=== PATIENT | male | born 1970 | race Caucasian/White ===

== ENCOUNTER 2021-01-17 22:02 | Emergency (ER) | payer OTHER ==
[2021-01-18 00:05] LABS: Absolute Lymphocytes (CBC) 2.9 K/uL (0.7-4.9); Basophils % 0.8 % (0-1.3); Hematocrit 39.1 % (39.6-49.0); Lymphocytes % 26.5 % (15.3-44.8); MPV 7.7 fL (7.6-11.3); RBC Red Blood Cell Count 4.33 M/uL (4.33-5.43)
[2021-01-18 00:18] LABS: Potassium 3.8 mmol/L (3.5-5.1)
[2021-01-18] MEDS ORDERED: KETOROLAC 30 MG/ML INJ ONE (01:07)
--- NOTE | 2021-01-18 02:42 | EDPHYS ---
Physician Documentation [facility] Name: Terrence Swift Age: 50 yrs Sex: Male : 1970 Arrival Date: 01/17/2021 Time: 22:04 Bed 8 Private MD: ED Physician Carloz Garner HPI: 01/18 01:14 This 50 yrs old Male presents to ER via Ambulatory with complaints of Elbow mh7 Swelling-redness/fever. 01:14 The patient or guardian complains of pain, that is acute. The complaints affect the mh7 right elbow. Context: The problem was sustained at an unknown location, resulted from repetitive motion moving furniture. Onset: The symptoms/episode began/occurred 4 day(s) ago. Treatment prior to arrival includes: no previous treatment. Modifying factors: The symptoms are alleviated by OTC meds, the symptoms are aggravated by lifting weight, bending arm. Associated signs and symptoms: Pertinent positives: decreased range of motion, pain, Pertinent negatives: deformity, erythema, fever, nausea, numbness, swelling, tingling, vomiting, warmth, weakness. Severity of symptoms: At their worst the symptoms were moderate, 3 day(s) ago, in the emergency department the symptoms have improved, moderately. Historical: - Allergies: 01/17 22:27 No Known Allergies; em - PMHx: 22:27 Hyperlipidemia; Hypertension; em - PSHx: 22:27 None; em - Immunization history:: Adult Immunizations up to date. - Social history:: Smoking status: Patient denies any tobacco usage or history of. ROS: 01/18 01:14 Constitutional: Negative for fever, chills, and weight loss, Eyes: Negative for injury, mh7 pain, redness, and discharge, ENT: Negative for injury, pain, and discharge, Neck: Negative for injury, pain, and swelling, Cardiovascular: Negative for chest pain, palpitations, and edema, Respiratory: Negative for shortness of breath, cough, wheezing, and pleuritic chest pain, Abdomen/GI: Negative for abdominal pain, nausea, vomiting, diarrhea, and constipation, Back: Negative for injury and pain, : Negative for injury, bleeding, discharge, and swelling, Skin: Negative for injury, rash, and discoloration, Neuro: Negative for headache, weakness, numbness, tingling, and seizure, Psych: Negative for depression, anxiety, suicide ideation, homicidal ideation, and hallucinations, Allergy/Immunology: Negative for hives, rash, and allergies, Endocrine: Negative for neck swelling, polydipsia, polyuria, polyphagia, and marked weight changes, Hematologic/Lymphatic: Negative for swollen nodes, abnormal bleeding, and unusual bruising. Exam: 01:14 Constitutional: This is a well developed, well nourished patient who is awake, alert, mh7 and in no acute distress. Head/Face: Normocephalic, atraumatic. Eyes: Pupils equal round and reactive to light, extra-ocular motions intact. Lids and lashes normal. Conjunctiva and sclera are non-icteric and not injected. Cornea within normal limits. Periorbital areas with no swelling, redness, or edema. Neck: Trachea midline, no thyromegaly or masses palpated, and no cervical lymphadenopathy. Supple, full range of motion without nuchal rigidity, or vertebral point tenderness. No Meningismus. Chest/axilla: Normal chest wall appearance and motion. Nontender with no deformity. No lesions are appreciated. Cardiovascular: Regular rate and rhythm with a normal S1 and S2. No gallops, murmurs, or rubs. Normal PMI, no JVD. No pulse deficits. Respiratory: Lungs have equal breath sounds bilaterally, clear to auscultation and percussion. No rales, rhonchi or wheezes noted. No increased work of breathing, no retractions or nasal flaring. Abdomen/GI: Soft, non-tender, with normal bowel sounds. No distension or tympany. No guarding or rebound. No evidence of tenderness throughout. Back: No spinal tenderness. No costovertebral tenderness. Full range of motion. Skin: Warm, dry with normal turgor. Normal color with no rashes, no lesions, and no evidence of cellulitis. 01:14 Neuro: Awake and alert, GCS 15, oriented to person, place, time, and situation. Cranial nerves II-XII grossly intact. Motor strength 5/5 in all extremities. Sensory grossly intact. Cerebellar exam normal. Normal gait. Psych: Awake, alert, with orientation to person, place and time. Behavior, mood, and affect are within normal limits. 01:14 Musculoskeletal/extremity: Extremities: noted in the right elbow: decreased ROM, pain, tenderness, ROM: limited active range of motion due to pain, in the right elbow, limited passive range of motion due to pain, in the right elbow, Circulation is intact in all extremities. Sensation intact. Compartment Syndrome exam of affected extremity: is normal. no numbness, no tingling, no sensation deficit, no palor, no weak pulses, Joints: the right elbow displays painful range of motion, tenderness, Weight bearing: able to fully bear weight, without difficulty, Tendon exam: specific tendon testing normal through active and passive range of motion Vital Signs: 01/17 22:23 BP 150 / 104; Pulse 83; Resp 18; Temp 98.5; Pulse Ox 100% on R/A; Weight 97.52 kg; em Height 5 ft. 9 in. (175.26 cm); Pain 03/18; 01/18 00:17 BP 141 / 90; Pulse 74; Resp 18; Pulse Ox 100% on R/A; ea 01:00 BP 131 / 84; Pulse 70; Resp 17; Pulse Ox 98% ; rr5 02:00 BP 139 / 84; Pulse 79; Resp 16; Pulse Ox 98% ; rr5 02:50 BP 123 / 82; Pulse 60; Resp 18; Pulse Ox 98% ; ea 01/17 22:23 Body Mass Index 31.75 (97.52 kg, 175.26 cm) em MDM: 02:38 Differential diagnosis: contusion, abrasion, tendonitis, Bursitis. Data reviewed: vital [facility] signs, nurses notes, lab test result(s), CBC, electrolytes, radiologic studies, plain films. Data interpreted: Pulse oximetry: on room air is 98 %. Interpretation: normal. Counseling: I had a detailed discussion with the patient and/or guardian regarding: the historical points, exam findings, and any diagnostic results supporting the discharge/admit diagnosis, the presence of at least one elevated blood pressure reading (>120/80) during this emergency department visit, lab results, radiology results, the need for outpatient follow up, a orthopedic surgeon, to return to the emergency department if symptoms worsen or persist or if there are any questions or concerns that arise at home. Response to treatment: the patient's symptoms have markedly improved after treatment. 02:42 Patient medically screened. [facility] 01/17 23:48 Order name: CBC with Diff; Complete Time: 00:19 ea 01/17 23:48 Order name: BMP; Complete Time: 00:19 ea 01/17 22:53 Order name: XRAY Elbow RIGHT 3 view bb 01/17 23:48 Order name: Procalcitonin; Complete Time: 01:37 ea 01/18 02:25 Order name: Kevin Wrap; Complete Time: 02:57 mh7 01/18 02:38 Order name: Sling; Complete Time: 02:47 7 Administered Medications: 00:54 Drug: TORadol (ketorolac) 30 mg Route: IVP; Site: left antecubital; ea 02:57 Follow up: Response: No adverse reaction; Pain is decreased ea Disposition: 01/18/21 02:42 Discharged to Home. Impression: Elbow Pain, Right. - Condition is Stable. - Discharge Instructions: RICE for Routine Care of Injuries, [id number], Elbow Contusion, [id number]. - Prescriptions for ketorolac 10 mg Oral tablet - take 1 tablet by ORAL route every 8 hours As needed not to exceed 40 mg in 24hrs; 12 tablet. - Medication Reconciliation Form, Thank You Letter, Antibiotic Education, Prescription Opioid Use form. - Follow up: Private Physician; When: 1 - 2 days; Reason: Worsening of condition, Recheck today's complaints, Continuance of care, Re-evaluation by your physician. Follow up: Winston Sunshine MD; When: 2 - 3 days; Reason: Worsening of condition, Recheck today's complaints. - Problem is new. - Symptoms have improved. Signatures: Dispatcher [employer] EDGovind Yancey RN RN em Antunez, Elena, RN RN ea Holmes, Maurice, MD MD [facility] Corrections: (The following items were deleted from the chart) 02:59 02:42 01/18/2021 02:42 Discharged to Home. Impression: Elbow Pain, Right. Condition is ea Stable. Forms are Medication Reconciliation Form, Thank You Letter, Antibiotic Education, Prescription Opioid Use. Follow up: Private Physician; When: 1 - 2 days; Reason: Worsening of condition, Recheck today's complaints, Continuance of care, Re-evaluation by your physician. Follow up: Dr. Winston Sunshine; When: 2 - 3 days; Reason: Worsening of condition, Recheck today's complaints. Problem is new. Symptoms have improved. 7
--- NOTE | 2021-01-18 02:42 | ER ---
Nurse's Notes [facility] Name: Terrence Swift Age: 50 yrs Sex: Male : 1970 Arrival Date: 01/17/2021 Time: 22:04 Bed 8 Private MD: Diagnosis: Elbow Pain, Right Presentation: 01/17 22:23 Chief complaint: Patient states: right elbow swelling/redness noted that started 2 days em ago, reports limited ROM in right elbow, warm to the touch, denies fever. Coronavirus screen: Client denies travel out of the [place] in the last 14 days. Ebola Screen: Patient negative for fever greater than or equal to 101.5 degrees Fahrenheit, and additional compatible Ebola Virus Disease symptoms Patient denies exposure to infectious person. Patient denies travel to an Ebola-affected area in the 21 days before illness onset. No symptoms or risks identified at this time. Initial Sepsis Screen: Does the patient meet any 2 criteria? No. Patient's initial sepsis screen is negative. Does the patient have a suspected source of infection? No. Patient's initial sepsis screen is negative. Risk Assessment: Do you want to hurt yourself or someone else? Patient reports no desire to harm self or others. Onset of symptoms was January 17, 2021. 22:23 Method Of Arrival: Ambulatory em 22:23 Acuity: FREDDY 3 em Historical: - Allergies: 22:27 No Known Allergies; em - PMHx: 22:27 Hyperlipidemia; Hypertension; em - PSHx: 22:27 None; em - Immunization history:: Adult Immunizations up to date. - Social history:: Smoking status: Patient denies any tobacco usage or history of. Screenin:29 Abuse screen: Denies threats or abuse. Nutritional screening: No deficits noted. ea Tuberculosis screening: No symptoms or risk factors identified. Fall Risk None identified. Assessment: 23:29 General: Appears in no apparent distress. Behavior is appropriate for age. Pain: ea Complains of pain in right elbow. Neuro: Level of Consciousness is awake, alert, obeys commands, Oriented to person, place, time. Cardiovascular: Patient's skin is warm and dry. Respiratory: Airway is patent Respiratory effort is even, unlabored, Respiratory pattern is regular, symmetrical. Derm: redness, swelling and warmth to right elbow. 01/18 00:18 Reassessment: Patient and/or family updated on plan of care and expected duration. Pain ea level reassessed. Patient is alert, oriented x 3, equal unlabored respirations, skin warm/dry/pink. 02:00 Reassessment: Patient appears in no apparent distress at this time. Patient is alert, rr5 oriented x 3, equal unlabored respirations, skin warm/dry/pink. 02:57 Reassessment: Patient and/or family updated on plan of care and expected duration. Pain ea level reassessed. Patient is alert, oriented x 3, equal unlabored respirations, skin warm/dry/pink. Discharge instruction given to patient verbalized the understanding of instruction. Pt left ED ambulatory tolerating well. Vital Signs: 01/17 22:23 BP 150 / 104; Pulse 83; Resp 18; Temp 98.5; Pulse Ox 100% on R/A; Weight 97.52 kg; em Height 5 ft. 9 in. (175.26 cm); Pain 8/10; 06 00:17 BP 141 / 90; Pulse 74; Resp 18; Pulse Ox 100% on R/A; ea 01:00 BP 131 / 84; Pulse 70; Resp 17; Pulse Ox 98% ; rr5 02:00 BP 139 / 84; Pulse 79; Resp 16; Pulse Ox 98% ; rr5 02:50 BP 123 / 82; Pulse 60; Resp 18; Pulse Ox 98% ; ea 06 22:23 Body Mass Index 31.75 (97.52 kg, 175.26 cm) em ED Course: 01/17 22:04 Patient arrived in ED. as 22:26 Triage completed. em 22:27 Arm band placed on. em 23:25 Aubree Serrato, RN is Primary Nurse. ea 23:30 Patient has correct armband on for positive identification. Bed in low position. Call ea light in reach. Side rails up X 1. 23:51 Carloz Garner MD is Attending Physician. 7 23:53 XRAY Elbow RIGHT 3 view In Process Unspecified. EDMS 23:55 Inserted saline lock: 20 gauge in left antecubital area, using aseptic technique. Blood ea collected. 01/18 02:40 Winston Sunshine MD is Referral Physician. [facility] 02:58 No provider procedures requiring assistance completed. IV discontinued, intact, ea bleeding controlled, No redness/swelling at site. Pressure dressing applied. Administered Medications: 00:54 Drug: TORadol (ketorolac) 30 mg Route: IVP; Site: left antecubital; ea 02:57 Follow up: Response: No adverse reaction; Pain is decreased ea Outcome: 02:42 Discharge ordered by MD. winkler 02:59 Discharged to home ambulatory, with family. ea 02:59 Condition: stable 02:59 Discharge instructions given to patient, Instructed on discharge instructions, follow up and referral plans. medication usage, Demonstrated understanding of instructions, follow-up care, medications, Prescriptions given X 1. 02:59 Patient left the ED. ea Signatures: Dispatcher [employer] Govind Mack RN RN em Martinez, Amelia as Antunez, Elena, RN RN ea Roque, Raymond, RN RN rr5 Carloz Garner MD MD 7
[2021-01-18 03:40] VITALS: TEMP 98.5
[2021-01-18 03:43] VITALS: O2SAT 98
[2021-01-18 03:46] VITALS: BP 123/82
--- NOTE | 2021-01-18 22:12 | RAD REPORT ---
EXAM DESCRIPTION: RAD - Elbow Right 3 View - 01/17/2021 11:53 pm CLINICAL HISTORY 50 years Male PAIN Elbow Right 3 View COMPARISON: None. TECHNIQUE: Three views of the right elbow. FINDINGS: No fractures or dislocations are identified. No osseous destructive lesions. No abnormal f at pads are visualized. There is stranding in the subcutaneous fatty tissues along the ulnar aspect of the elbow likely from edema and contusion. IMPRESSION: No acute fracture is identified. Electronically signed by: Von Gallagher MD 01/18/2021 12:37 AM CDT Due to temporary technical issues with the PACS/Fluency reporting system, reports are being signed by the in house radiologists without review as a courtesy to insure prompt reporting. The interpreting radiologist is fully responsible for the content of the report.
== END 2021-01-18 02:59 | disposition home or self-care (01) ==
LOC: ER 22:02
DX: M25.521 Pain in right elbow (principal); I10 Essential (primary) hypertension
CPT/HCPCS: 36415; 80048; 84145; 85025; 96374; 99284